=== PATIENT | female | born 1980 | race Caucasian/White ===

== ENCOUNTER 2016-10-25 22:57 | Emergency (ER) | payer OTHER ==
[~2016-10-25] VITALS: Ht 172.7 cm; Wt 65.8 kg
[2016-10-25] MEDS ORDERED: TRINATE TABLET1 TAB PO (23:06)
[2016-10-25 23:35] VITALS: BP 141/68
== END 2016-10-25 23:35 | disposition home or self-care (01) ==
LOC: ER 22:57
DX: O12.03 Gestational edema, third trimester (principal); F17.210 Nicotine dependence, cigarettes, uncomplicated; Z3A.38 38 weeks gestation of pregnancy; Z88.2 Allergy status to sulfonamides